=== PATIENT | male | born 1960 | race Caucasian/White ===

== ENCOUNTER 2024-08-15 21:18 | Emergency (ER) | payer BC, MEDICARE, SELFPAY ==
[2024-08-15 21:19] VITALS: BP 134/97
[2024-08-15 21:22] VITALS: BMI 30.2
--- NOTE | 2024-08-15 21:45 | ED.GENMED ---
History of Present Illness
General
Chief Complaint: Catheter/Tube Problem
Source: patient
Time Seen by Provider: 08/15/24 21:23
History of Present Illness
History of Present Illness:
63-year-old male presents to the emergency room complaining of urinary retention. Patient is at [facility] for rehab after suffering a traumatic injury including spine injury. He was cared for at [facility]. He was discharged with a Jeffries
catheter. During the day today he was feeling as if his catheter was not functioning normally. Pressure in his pelvis as if he might have urinary retention. The staff did not address his issue in the timeframe he thought it should be. He became
frustrated and removed the catheter by pulling it out. The balloon was not deflated. He has not urinated since then. He sent to address this. Patient states he did have some blood initially from his penis after pulling out the catheter but none
since.
Phy Exam
Physical Exam
Physical Exam:
General: Awake, Alert, Oriented X3. No acute distress.
Vitals: unremarkable
Head: Atraumatic
Eyes: Pupils equal, EOMI
Throat: Airway intact, no exudates
Neck: Trachea midline
Abd: Soft, suprapubic fullness, No pulsatile mass
Genitalia: Normal male genitalia
Neuro: Grossly nonfocal
Skin: Warm, dry, no rash
Extremities: pulses equal b/l, no edema
Course
Orders/Labs/Results
Orders:
Orders
08/15/24 21:41
Jeffries Placement- Treatment ONCE
Reason for insertion: Acute Retention
08/15/24 22:17
Urinalysis Reflex To Culture Urgent
Date Specimen was Collected: 08/15/24
Time Specimen was Collected: 22:11
Vital Signs
Initial and Last Documented VS:
Initial Vital Signs
BP
134/97
08/15/24 21:19
Last Documented Vital Signs
Temp BP Pulse Ox
97.5 F 139/78 97
08/15/24 21:22 08/15/24 23:00 08/15/24 23:15
MDM/Problems Addressed
Differential Diagnosis Includes:
Urinary retention, increased wandering
MDM/Problems Addressed:
Bladder scan showed over a liter of urine remaining in the bladder. Jeffries catheter was placed without difficulty. 1400 cc of urine retrieved. There are some hematuria. However no clots in the Jeffries was draining normally. Patient stable for
discharge back to his facility.
*Pulse Oximetry
Patient hypoxic: no
*Critical Care Note
Total Time (30-74mins, 75-104mins- exclusive of procedures): Not Applicable
ED Attending Note
-
Portions of this chart may have been created with voice recognition software.� Occasional wrong word or��sound alike� substitutions may have occurred due to the inherent limitations of voice recognition software.
Discharge Plan
Departure
Patient Disposition: Home (Routine Discharge)
Date of Disposition: 08/15/24
Time of Disposition: 22:30
Patient with high blood pressure during this ER visit?: No
Condition: Good
Discharge Problem:
Acute urinary retention
Instructions: How to Care for Your Jeffries Catheter, Male
Referrals:
Gilmer Grullon MD [Family Provider] -
Interventions
Interventions:
*Risk Screen - Suicide Last Done: 08/15/24 21:22
*General Assessment Last Done: 08/15/24 21:22
*Neglect/Abuse Screening Last Done: 08/15/24 21:22
ED- Fall Risk Assessment Last Done: 08/15/24 23:59
*ED COVID-19 Vaccine History Last Done: 08/15/24 21:22
*Nursing Disposition Last Done: 08/15/24 23:59
CL-Lfnucl-Onojguhqpe Assessment Last Done: 08/15/24 21:22
ED-Male Genitourinary Assessment Last Done: 08/15/24 21:22
Discharge Date and Time
Discharge Date/Time: 08/16/24 00:00
Print Language: UPPER SORBIAN
[2024-08-15 22:00] VITALS: BP 129/83
[2024-08-15 22:22] LABS: Urine Albumin Negative (Neg - Trace); Urine Bilirubin Negative (Negative); Urine Character Clear (Clear); Urine Color Yellow; Urine Glucose Negative (Negative); Urine Ketone Negative (Negative); Urine Leukocyte Negative (Negative); Urine Nitrite Negative (Negative); Urine Occult Blood Negative (Negative); Urine Specific Gravity 1.015 (<1.030); Urine Urobilinogen 1+ (Neg - 1+); Urine pH 6.5 (5.0-9.0)
[2024-08-15 23:00] VITALS: BP 139/78
== END 2024-08-16 | disposition home or self-care (01) ==
LOC: EMR 21:18
PROVIDERS: EMERGENCY PHYSICIAN Emergency Medicine; FAMILY PHYSICIAN Internal Medicine
DX: R33.9 Retention of urine, unspecified (principal)
CPT/HCPCS: 99283; 51702; 51798; 81003